=== PATIENT | male | born 1940 | race Caucasian/White ===

== ENCOUNTER → 2022-09-20 | Outpatient (CLI) | payer MEDICARE, BC ==
--- NOTE | 2022-09-20 08:56 | CT ---
EXAMINATION TYPE: CT hip RT wo con DATE OF EXAM: 09/20/2022 COMPARISON: None. HISTORY: right hip pain CT DLP: 914.2 mGycm Automated exposure control for dose reduction was used. FINDINGS: [place]ski osseous structures are demineralized. Metallic hardware from right hip arthroplasty is seen an d appears satisfactory in position. Streak artifact is present. No suspicious surrounding lucency not ed. There are old healed fracture deformities of the right superior and inferior pelvic rami. No acut e displaced fracture is seen. Muscle bulk is preserved. Catheter in bladder which is mildly to moderately distended. There are 4 to 5 mm dependent calculus a xial image 13. Scattered tiny pelvic phleboliths. [place] artifact limits evaluation of the prostate gl and. No groin hernia or adenopathy is seen. Surgical clips in the right groin region are noted. IMPRESSION: As above.
--- NOTE | 2022-09-20 15:25 | NM ---
EXAMINATION TYPE: NM bone 3 phase DATE OF EXAM: 09/20/2022 COMPARISON: NONE HISTORY: Right hip pain Triple phase bone scintigraphy was performed following the injection of 23.2 mCi Tc 99m MDP. Immedia te images and 5.25 hours post injection images acquired. FINDINGS: A photopenic defect suggests bilateral hip prostheses. A flow images demonstrate slight asy mmetric increased flow to the right hip. Blood pool images demonstrate symmetric soft tissue uptake. Delayed imaging demonstrates faint symmetric uptake surrounding both hip prostheses. This is felt to be most likely postsurgical. IMPRESSION: 1. There is slight asymmetric flow to the right hip prostheses. However, delayed images demonstrate o nly faint symmetric bilateral uptake with no diagnostic evidence of infection or loosening.
== END | disposition home or self-care (01) ==
LOC: RADCTMAIN 06:56
PROVIDERS: ATTEND Orthopaedic Surgery
DX: T84.84XD Pain due to internal orthopedic prosthetic devices, implants and grafts, subsequent encounter (principal); M25.551 Pain in right hip; R55 Syncope and collapse; N32.89 Other specified disorders of bladder; N21.0 Calculus in bladder; Z96.641 Presence of right artificial hip joint
CPT/HCPCS: 73700; 78315; A9503

== ENCOUNTER 2022-10-11 09:00 | Day surgery (SDC) | payer MEDICARE, BC ==
[2022-10-11 09:36] VITALS: RESP 16; TEMP 97.6
[2022-10-11 09:59] LABS: Glucose,Whole Blood 173 mg/dL (70-110)
[2022-10-11 10:37] VITALS: BP 130/75; PULSE 72
--- NOTE | 2022-10-11 18:03 | US ---
EXAMINATION TYPE: US guided asp/inj major joint DATE OF EXAM: 10/11/2022 Comparison: Correlation CT 09/20/2022 History: 82-year-old male M25.551,Z96.641,T84.84XD. Right hip replacement 20 years ago. Reports clunk ing and pain that started one year ago. Procedure: 1. Ultrasound of the right hip. 2. Ultrasound guided right hip aspiration. Technique: The procedure, risks, and alternatives, were discussed with the patient, who requested denise t we proceed. The consent form was signed, and teach-back occurred. The site/side of the procedure wa s marked with a line with participation by the patient. The accompanying paperwork was verified for c onsistency. A directed history and physical exam was performed prior to the procedure. Medication rec onciliation was performed by ancillary personnel. A critical pause was performed with assisting sarika alvarez just prior to the procedure and the patient's identity was confirmed using 2 identifiers. Imagin g guidance was utilized to select the precise skin entry point just prior to the procedure. The anterior right hip was prepped and draped in the usual sterile fashion and local 1% lidocaine ane sthesia was instilled. Under ultrasound guidance, the underlying prosthetic head neck junction was identified. No obvious as sociated effusion is identified. Under ultrasound guidance, an 18 gauge spinal needle was introduced into the prosthetic right hip joint down to the metal. Aspiration attempt yielded no fluid. Subsequen tly, a total of 9 mL sterile saline was injected and aspiration yielded a total of 3 mL blood-tinged clear fluid which is labeled and sent for laboratory analysis. The needle was then removed. The patient tolerated the procedure well. There were no immediate complications. After the procedure, the patient's condition was unchanged. Es timated blood loss was minimal. The patient was instructed on routine postprocedure precautions, incl uding monitoring for signs of infection. IMPRESSION: Successful ultrasound guided prosthetic right hip wash with sterile saline. Initial aspiration yielde d no fluid. Microbiology pending.
[2022-10-12 13:47] LABS: Appearance,BF Blood Tinged; Nucleated Cells, Body Fluid 245 /uL
[2022-10-12 13:48] LABS: RBC, Body Fluid 20000 /uL
== END 2022-10-11 10:55 | disposition home or self-care (01) ==
LOC: RADPROMAIN 09:00
PROVIDERS: ATTEND Orthopaedic Surgery
DX: M25.551 Pain in right hip (principal); Z96.641 Presence of right artificial hip joint; T84.84XD Pain due to internal orthopedic prosthetic devices, implants and grafts, subsequent encounter
CPT/HCPCS: 20611; 87070; 87075; 87102; 87205; 89050

== ENCOUNTER → 2023-04-05 | Outpatient (CLI) | payer MEDICARE, BC ==
[2023-04-05 15:46] LABS: INR 1.1 (<1.2); Partial Thromboplastin Time 28.9 sec (22.0-30.0); Prothrombin Time 11.7 sec (9.0-12.0)
[2023-04-05 19:57] LABS: BUN/Creat Ratio 20.59 Ratio (12.00-20.00); Blood Urea Nitrogen 55.6 mg/dL (9.0-27.0); Chloride 102 mmol/L (96-109); Glucose 210 mg/dL (70-110); Potassium 4.5 mmol/L (3.5-5.5); Sodium 137 mmol/L (135-145)
[2023-04-05 19:58] LABS: ALT 70 U/L (10-49); AST 61 U/L (14-35); Albumin 3.9 d/dL (3.8-4.9); Albumin/Globulin Ratio 1.56 Ratio (1.60-3.17); Alkaline Phosphatase 79 U/L (41-126); Calcium 9.9 mg/dL (8.7-10.3); Carbon Dioxide 23.8 mmol/L (21.6-31.8); Globulin 2.5 d/dL (1.6-3.3); Total Bilirubin 0.4 mg/dL (0.3-1.2); Total Protein 6.4 d/dL (6.2-8.2)
[2023-04-05 20:38] LABS: Appearance,Urine Clear (Clear); Bilirubin,Urine Negative (Negative); Blood,Urine Large (Negative); Color,Urine Yellow (Yellow); Ketones,Urine Negative (Negative); Nitrite,Urine Negative (Negative); PH, Urine 5.5; Specific Gravity,Urine 1.015 (1.001-1.030); Urobilinogen,Urine 0.2 E.U./DL
[2023-04-05 20:45] LABS: Bacteria,Urine None Seen (None Seen)
[2023-04-05 21:28] LABS: HGB 12.8 d/dL (12.0-15.0); MCH 33.1 pg (27.0-32.0); MCHC 32.8 d/dL (32.0-37.0); MCV 100.8 FL (80.0-97.0); Mean Platelet Volume 10.6 FL (9.5-12.2); NRBC Per 100 WBC 0 X 10*3/uL (0.00-0.01); Platelet Count 148 X 10*3/uL (140-440); RBC 3.87 X 10*6/uL (4.40-5.60); RDW 15.1 % (11.5-14.5); WBC 4.53 X 10*3/uL (4.50-10.00)
== END | disposition home or self-care (01) ==
LOC: LABPAT 13:56
PROVIDERS: ATTEND Orthopaedic Surgery
DX: Z01.812 Encounter for preprocedural laboratory examination (principal); M16.11 Unilateral primary osteoarthritis, right hip; E11.9 Type 2 diabetes mellitus without complications; Z96.641 Presence of right artificial hip joint
CPT/HCPCS: 80053; 81001; 83036; 85027; 85610; 85730; 87070; 93005

== ENCOUNTER 2023-04-13 05:53 | Inpatient (IN) | payer MEDICARE, BC ==
[2023-04-05 10:18] VITALS: BMI 26.6
[2023-04-13] MEDS ORDERED: ONDANSETRON 4 MG/2 ML VIAL IVP PRN ×2 (06:00→09:35)
[2023-04-13] MEDS ORDERED: FAMOTIDINE 20 MG/2 ML VIAL IVP PRN (06:00)
[2023-04-13] MEDS ORDERED: KETOROLAC 15 MG/ML 1 ML VIAL IVP PRN (06:00)
[2023-04-13] MEDS ORDERED: TRANEXAMIC 1,000 MG/100ML-NACL 1,000 MG in SALINE 1 100ML.BAG IVPB PRN (06:00)
[2023-04-13] MEDS ORDERED: ACETAMINOPHEN TAB 500 MG TAB PO PRN (06:00)
[2023-04-13] MEDS ORDERED: DEXAMETHASONE SOD PHOSPHATE 10 MG/ML 1 ML VIAL IV PRN (06:00)
[2023-04-13] MEDS ORDERED: oxyCODONE ER 10 MG TAB.ER.12H PO PRN (06:00)
[2023-04-13] MEDS ORDERED: TRANEXAMIC 1,000 MG/100ML-NACL 1,000 MG in SALINE 1 100ML.BAG IV PRN (06:00)
[2023-04-13] MEDS ORDERED: DOCUSATE 100 MG CAP PO PRN (06:00)
[2023-04-13] MEDS ORDERED: DEXAMETHASONE SOD PHOSPHATE 4 MG/ML 1 ML VIAL IV ONE (06:24)
[2023-04-13] MEDS ORDERED: ONDANSETRON 4 MG/2 ML VIAL IVP ONE (06:24)
[2023-04-13 06:43] LABS: Glucose,Whole Blood 122 mg/dL (70-110)
[2023-04-13] MEDS: LACTATED RINGERS 1,000 ML IV SCH ×2 (06:59→19:49)
[2023-04-13] MEDS ORDERED: MIDAZOLAM 2 MG/2 ML VIAL IVP ONE (07:13)
[2023-04-13] MEDS ORDERED: LIDOCAINE 2% INJ 20 MG/ML (2 ML VIAL) ONE (07:24)
[2023-04-13] MEDS ORDERED: NEOSTIGMINE 1 MG/ML 10 ML VIAL ONE (07:24)
[2023-04-13] MEDS ORDERED: ROCURONIUM 10 MG/ML (5 ML VIAL) IV ONE (07:24)
[2023-04-13] MEDS ORDERED: fentaNYL (PF) 50 MCG/ML 2 ML AMP ONE (07:24)
[2023-04-13] MEDS ORDERED: ETOMIDATE 2 MG/ML 10 ML VIAL ONE (07:24)
[2023-04-13] MEDS ORDERED: PHENYLEPHRINE-0.9% NACL SYG 1,000 MCG/10 ML SYRINGE ONE (07:24)
[2023-04-13] MEDS ORDERED: ePHEDrine 50 MG/ML 1 ML VIAL ONE (07:24)
[2023-04-13] MEDS ORDERED: ROPIVACAINE 5 MG/ML 30 ML VIAL ONE (07:24)
[2023-04-13] MEDS ORDERED: TRANEXAMIC 1,000 MG/100ML-NACL PREMIX BAG ONE (07:24)
[2023-04-13] MEDS ORDERED: GLYCOPYRROLATE 0.2 MG/ML 2 ML VIAL ONE (07:24)
[2023-04-13] MEDS ORDERED: SUCCINYLCHOLINE CHLORIDE 200 MG/10 ML VIAL IV ONE (07:24)
[2023-04-13] MEDS: ROPIVACAINE/EPI/CLONIDINE/KET 50 ML SYRINGE MISCELLANE PRN ×2 (08:08→08:59)
[2023-04-13] MEDS ORDERED: LACTATED RINGERS 1,000 ML IV ONE (09:12)
--- NOTE | 2023-04-13 09:27 | XR ---
EXAMINATION TYPE: XR Hip Limited RT DATE OF EXAM: 04/13/2023 COMPARISON: NONE HISTORY: Post op TECHNIQUE: One view submitted. FINDINGS: There is postsurgical change compatible hip replacement surgery. 16 FLUORO, .9888 Gycm2 IMPRESSION: 1. Postoperative change. Appears in near-anatomic alignment.
--- NOTE | 2023-04-13 09:31 | FL ---
EXAMINATION TYPE: FL guidance operating room DATE OF EXAM: 04/13/2023 HISTORY: Fluoroscopy time Total dose area product (DAP) in uGy*m?, mGy*cm? (or similar): 16 FLUORO, .9888 Gycm2 IMPRESSION: 1. Fluoroscopy time.
[2023-04-13] MEDS ORDERED: hydrOXYzine pamoate 25 MG CAP PO PRN (09:35)
[2023-04-13] MEDS ORDERED: NALOXONE 0.4 MG/ML 1 ML VIAL IV PRN (09:35)
[2023-04-13] MEDS ORDERED: HYDROcodone/APAP 5-325MG 1 EACH TAB PO PRN ×2 (09:35)
[2023-04-13] MEDS ORDERED: HYDROmorphone 0.5 MG/0.5 ML SYRINGE IVP PRN ×3 (09:35)
--- NOTE | 2023-04-13 09:44 | P.OP ---
Date of Procedure: 04/13/23 Preoperative Diagnosis: 1. Painful right total hip replacement with early generation ceramic on ceramic bearing surface 2. Coronary artery disease, history of CABG 3. Chronic kidney disease (creatinine 2.7) 4. DM2 5. Atrial fibrillation on Eliquis Postoperative Diagnosis: Same Procedure(s) Performed: Right revision total hip arthroplasty, head/liner exchange Implants: 1. Diana 48-mm G MDM liner 2. MDM 48-mm OD, 28-mm ID +5mm head Anesthesia: CYA, regional Surgeon: Hector Cloud Promotions Intern #1: Tirso Dodd Estimated Blood Loss (ml): 100 IV fluids (ml): 600 Pathology: other (Multiple deep fluid and tissue samples sent for culture) Condition: stable Disposition: PACU Indications for Procedure: The patient is a very pleasant 82-year-old male with multiple medical problems who is a medical history significant for coronary artery disease, chronic kidney disease, type 2 diabetes, and atrial fibrillation on anticoagulation who has had bilateral hip replacements remotely. Both were doing well until he recently developed mechanical pain and a popping sensation in the right hip. His x-rays showed an early degeneration ceramic on ceramic articulation. He was worked up for infection and his inflammatory markers were normal. A computed tomography scan was obtained to evaluate the position of the implants and the possibility of a ceramic liner fracture. He did not have any apparent failure of the ceramic articulation but continued to have a feeling of the hip coming out of socket and a painful popping sensation. I long discussion with the patient and consulted with several of my peers, reviewing the x-rays with them. My recommendation was to proceed with a headliner exchange as I felt his symptoms were most likely related to either ceramic failure or instability. The patient and his agreed with this. We briefly discussed a much larger revision but due to his multiple medical problems, age, and no definitive mechanical issues with the implants we all agreed to proceed with a headliner exchange. Custom potential risks and Locations of surgery at length. We also discussed the possibility of a more involved revision if the implants were loose were grossly malpositioned. The patient understands that he is at a high risk of complication due to his age and multiple medical problems. I had a long discussion with the patient in the office on the potential risks and complications of an elective total hip revision through a direct anterior approach. Risks discussed include, but are certainly not limited to, risks from anesthesia, superficial infection requiring local wound care or antibiotics, deep sage-prosthetic joint infection and the treatment required to eradicate infection, intraoperative fracture, postoperative periprosthetic fracture, damag e to local blood vessels or nerves particularly the lateral femoral cutaneous nerve, delayed wound healing requiring local wound care or possibly surgical debridement, hip dislocation, leg length discrepancy, soft tissue irritation around the total hip implant such as iliopsoas tendinitis or trochanteric bursitis, wear and osteolysis from the implants, squeaking or audible noises, groin pain, thigh pain, heterotopic ossification, stiffness, aseptic loosening of the implants, dissatisfaction with surgical outcome, need for revision surgery, DVT, PE, swelling of the operative extremity, acute coronary event, stroke, failure to thrive, and possibly loss of life or limb. The patient understands that while these are the most common complications after an elective hip replacement there are certainly other less common complications possible. They were given ample time to ask questions regarding the potential complications of a hip replacement. Following our discussion the patient provided their verbal and written consent to go forward with an elective total hip replacement revision. He is well aware of these risks and also that he has an increased risk of complication due to his medical issues. Operative Findings: The ceramic articulation was intact with no obvious fracture of either the liner or head. Both the socket and stem were well fixed with no evidence of loosening. The cup appeared to be slightly retroverted. There is no soft tissue impingement over the cup. There is no sign of deep infection. Description of Procedure: The patient was identified in the preoperative holding area and the correct hip was marked with my initials. I reviewed the procedure and consent with the patient. All of their questions were answered. The patient was then brought back into the operating room by anesthesia. While on the [facility] anesthesia was administered by the anesthesia team. Preoperative antibiotics and tranexamic ac id were also given. After the patient was under anesthesia I examined their ankles to determine their preoperative leg length discrepancy. The skin over the anterior aspect of the hip was shaved to remove hair over the site of planned incision. Both feet and ankles were padded with webril and boots for the [place] were applied. The patient was then carefully transferred onto the [place] table. A perineal post was immediately placed. The arms were placed on arm holders and were well-padded. Both boots were secured to the spars on the [place] table. The patient was positioned so that the pelvis was centered over the post. Nonsterile drapes were applied. A timeout was performed identifying the correct patient, operative extremity, and procedure. At this point fluoroscopy was brought in to take preoperative images of the pelvis and operative hip. Using the standing AP pelvis from the office as a template, a comparable image was obtained with fluoroscopy. A metallic bar was used to create a bi-ischial line for use as a reference to leg length adjustments during the procedure. Global offset was also measured on both the operative and nonoperative leg. Fluoroscopy was then brought out and a pre-scrub using a chlorhexidine scrub brush was performed. The operative limb was then prepped and draped in the standard sterile fashion. An anterior longitudinal incision was made lateral and distal to the ASIS. The skin and subcutaneous tissues were incised sharply. The underlying tensor fascia was identified and incised in its midportion. The fascia was dissected free from the underlying muscle and the muscle belly was retracted. A blunt tipped cobra retractor was placed over the superior neck under the muscle fibers of the gluteus minimus. The deep enveloping fascia of the tensor was incised. The anterior leash of vessels were then identified and cauterized. The fascia between the rectus and the capsule was then incised and the pre-capsular fat was excised. A second Cobra was placed inferior to the neck. The interval between the rectus and iliocapsularis and the hip capsule was developed and a retractor was placed carefully over the anterior rim of the acetabulum. A T-shaped anterior capsulotomy was performed. The superior capsular leaflet was left in place in the inferior capsular flap was excised. The Cobra retractors were placed intracapsularly. There is a small amount of clear fluid which was aspirated with a syringe and sent for cultures. Capsular tissue was also excised and sent for culture. There was no evidence of deep infection. The socket was then circumferentially exposed. Gentle traction was applied to the table and a bone tamp was used to disengage the femoral head from the trunnion. Using a bone hook the trunnion was carefully dislocated from the border of the femoral head. A pocket was made posterior to the cup and the trunnion and stem were placed behind the cup as traction was released to the table. The head was easily removed from the socket. There was no obvious fracture of either the head or liner. I then circumferentially exposed the socket. Using a T-handle extraction device the liner was removed and passed off to the back table. Tissue behind the cup was removed and sent for cultures. The socket was then thoroughly irrigated and inspected. Using a rongeur the cup was forcibly pulled there was no evidence of loosening. Cup appeared slightly retroverted with a small amount of overhang anteriorly. The iliopsoas did not appear to be impinging on the cup. The cup was then thoroughly irrigated and an MDM liner corresponding to the Size was gently tapped into place. Once the liner was engaged attention was turned to the stem. Using the table the leg was dropped and the trunnion was fully exposed. It appeared well fixed with no evidence of loosening. The trunnion appeared intact with no evidence of wear. A final MDM head including outer diameter poly-ball and an inner diameter ceramic head were dispensed. The MDM construct was assembled on the back table and gently tapped into place on the trunnion engaging the Torres taper. The hip was then carefully reduced. The acetabulum was irrigated and visualized to be free of debris. The hip was carefully reduced. Stability was checked clinically with external rotation to 90 and there was no evidence of instability. Final fluoroscopic images were taken. The wound was then thoroughly irrigated and soaked with a dilute Betadine rinse for 3 minutes. 3 L of sterile saline was irrigated through the wound using pulsatile lavage. Local anesthetic cocktail was injected into the soft tissues around the surgical field. A deep drain was placed. The wound was then closed in layers. A sterile dressing was placed over the surgical incision and drain site. The drapes were taken down and the patient was carefully transferred off of the [place] table. Following removal of the boots the leg lengths felt acceptable. The patient was then taken to recovery room having tolerated the procedure well. Tirso Dodd PA-C was required as a skilled medical support assistant for patient positioning, surgical exposure, retraction, placement of implants, and closure of the surgical wound. PLAN: The patient can weight-bear as tolerated on the operative extremity. 2 doses of postoperative antibiotics. DVT prophylaxis - resume Eliquis and aspirin. Due to this being a septic revision he will be placed on doxycycline 100 mg twice a day until his incisions healed. Physical therapy for gait training. Discontinue drain postoperative day #1 if output is less than 100 mL per shift.
[2023-04-13 09:50] LABS: Glucose,Whole Blood 133 mg/dL (70-110)
[2023-04-13 16:21] LABS: Glucose,Whole Blood 169 mg/dL (70-110)
[2023-04-13] MEDS ORDERED: DEXTROSE 50% SYRINGE 50 ML IVP PRN ×2 (17:50)
--- NOTE | 2023-04-13 17:51 | P.CONS ---
History of Present Illness - Reason for Consult Consult date: 04/13/23 Medical management Requesting physician: Hector Cloud - Chief Complaint Right hip surgery - History of Present Illness Pleasant 82-year-old patient who follows with Dr. Saskia Valdez. Her next able medical conditions include age progression, CAD, CHF, diabetes, GERD, hypertension, hyperlipidemia, renal disease, restless legs syndrome, CAD stage IV, back pain, kidney stents, pacemaker CAD with stent/bypass. Patient is undergoing revision right total hip arthroplasty with Dr. Cloud. Sitting up in bed. Eating dinner. No nausea vomiting. No chest pain no shortness of breath. Review of systems: GEN.: None EYES: None HEENT: None NECK: None RESPIRATORY: None CARDIOVASCULAR: None GASTROINTESTINAL: None GENITOURINARY: None MUSCULOSKELETAL: Joint pains LYMPHATICS: None HEMATOLOGICAL: None PSYCHIATRY: None NEUROLOGICAL: None Past medical history to include: Atrial fibrillation, CAD with bypass and stent, CHF, diabetes, GERD, hypertension, hyperlipidemia, osteoarthritis, restless legs syndrome, cardiomyopathy, CAD stage IV, pancreatitis, kidney stent in 2022, AICD/pacemaker, Joseph bypass in 2016, mitral valve repair, Social history: Used to work as a ken and also deviated appliances. . Alcohol occasionally. Physical examination: VITAL SIGNS: 97.4, 70, 18, 125/75, 93% room air GENERAL: BMI 26.9, declining with awake eating supper. EYES: Pupils equal. Conjunctiva normal. HEENT: External appearance of nose and ears normal, oral cavity grossly normal. NECK: JVD not raised; masses not palpable. HEART: First and second heart sounds are normal; no edema. LUNGS: Respiratory rate normal; clear to auscultation. ABDOMEN: Soft, nontender, liver spleen not palpable, no masses palpable. PSYCH: Alert and oriented x3; mood and affect normal. MUSCULOSKELETAL:No Clubbing/cyanosis;muscles-grossly intact. Dressing over the right hip incision site. OA. NEUROLOGICAL: Cranial nerves grossly intact; no facial asymmetry, power and sensation grossly intact. LYMPHATICS: No lymph nodes palpable in the axilla and neck INVESTIGATIONS, reviewed in the clinical context: 04/05/2023: White count 4.5 hemoglobin 12.8 platelets 148 potassium 4.5 BUN 55.6 creatinine 2.7 AST 61 ALT 70 Assessment and plan: -Revision right total hip arthroplasty Ancef for infection prophylaxis. Anticoagulation per Dr. Cloud. -Restless leg syndrome Requip 1.5 mg twice a day -Diabetes mellitus type 2 on oral hypoglycemic Glipizide. Follow Accu-Cheks for sliding scale. Giardia and some -Essential hypertension Amlodipine 5 mg a day -GERD Protonix 40 mg twice a day -CAD with a prior history of stent and bypass line Toprol XL 50 mg daily, Imdur 60 mg a day Lipitor -Chronic congestive heart failure EF not known Lasix 40 mg Sunday and Sunday -Hyperlipidemia Lipitor 40 mg daily at bedtime -Paroxysmal atrial fibrillation Eliquis, Toprol-XL, amiodarone -Primary osteoarthritis [place] 5 when necessary Care was discussed with the patient. Questions answered. Home medications and resume. Sliding scale with coverage. Thank you Dr. Cloud Past Medical History Past Medical History: Atrial Fibrillation, Coronary Artery Disease (CAD), Chest Pain / Angina, Heart Failure, Diabetes Mellitus, GERD/Reflux, Hyperlipidemia, Hypertension, Myocardial Infarction (CT), Osteoarthritis (OA), Renal Disease Additional Past Medical History / Comment(s): RLS, Cardiomyopathy, chronic kidney disease stage 4., hx pancreatitis from rx, back pain, kidney stent replac ed q 6 months (last was december 2022)., hx falls, pain right hip ., Pacemaker/AICD-(aviles ) Last Myocardial Infarction Date:: 2016? History of Any Multi-Drug Resistant Organisms: MRSA Year Discovered:: 2017 MDRO Source:: unknown Past Surgical History: AICD, Back Surgery, Coronary Bypass/CABG, Heart Catheterization With Stent, Joint Replacement, Pacemaker Additional Past Surgical History / Comment(s): CABG X2 (LAST MAY 2017). Mitral valve repair., TURP, bilateral hip replacement, kidney stent unsure what side. medtronic pacemaker (2017) and [employer]iles pacemaker/AICD (04/05/2020)., pt states total of 8 stents Past Anesthesia/Blood Transfusion Reactions: No Reported Reaction Date of Last Stent Placement:: unknown Type of Cardiac Device: Permanent Pacemaker, AICD Device Placement Date:: 04/05/2020 Past Psychological History: No Psychological Hx Reported Smoking Status: Former smoker Past Alcohol Use History: Occasional Additional Past Alcohol Use History / Comment(s): smoked 3 years as a teenager. drinks 3-5 drinks/week Past Drug Use History: None Reported - Past Family History Mother Family Medical History: Cancer Additional Family Medical History / Comment(s): bone Medications and Allergies Home Medications Medication Instructions Recorded Confirmed Type Acetaminophen [Tylenol Extra 1,000 mg PO BID 10/02/22 04/13/23 History Strength] Amiodarone [Cordarone] 200 mg PO QAM 10/02/22 04/13/23 History Apixaban [Eliquis] 5 mg PO BID 10/02/22 04/13/23 History Aspirin [Adult Low Dose Aspirin EC] 81 mg PO QAM 10/02/22 04/13/23 History Atorvastatin [Lipitor] 40 mg PO HS 10/02/22 04/13/23 History Cholecalciferol (Vitamin D3) 125 mcg PO DAILY 10/02/22 04/13/23 History [Vitamin D3 (125 MCG = 5,000 IU)] Empagliflozin [Jardiance] 25 mg PO DAILY 10/02/22 04/13/23 History Ferrous Sulfate [Feosol] 325 mg PO DAILY 10/02/22 04/13/23 History Furosemide [Lasix] 40 mg PO [place]OWES[place] 10/02/22 04/13/23 History Isosorbide Mononitrate ER [Imdur] 60 mg PO QAM 10/02/22 04/13/23 History Metoprolol Succinate [Toprol XL] 50 mg PO QAM 10/02/22 04/13/23 History Pantoprazole [Protonix] 40 mg PO BID 10/02/22 04/13/23 History Potassium Chloride [Klor-Con 10 ER] 10 meq PO M[place]ESA 10/02/22 04/13/23 History amLODIPine [Norvasc] 5 mg PO QAM 10/02/22 04/13/23 History glipiZIDE 20 mg PO DAILY 10/02/22 04/13/23 History rOPINIRole HCL [Requip] 1.5 mg PO BID 10/02/22 04/13/23 History Docusate [Colace] 100 mg PO BID #60 capsule 04/13/23 Rx Doxycycline Monohydrate 100 mg PO BID 14 Days #28 cap 04/13/23 Rx HYDROcodone/APAP 5-325MG [[place] 1 - 2 tab PO Q6HR PRN #30 tab 04/13/23 Rx 5-325] Omeprazole 40 mg PO DAILY 30 Days #30 cap 04/13/23 Rx Allergies Allergy/AdvReac Type Severity Reaction Status Date / Time ceftriaxone Allergy Unknown didnt work Verified 04/13/23 06:29 sulfamethoxazole Allergy Unknown didnt work Verified 04/13/23 06:29 [From Bactrim] trimethoprim [From Bactrim] Allergy Unknown didnt work Verified 04/13/23 06:29 dexamethasone [From Maxidex] Allergy pancreatiti Verified 04/13/23 06:29 s propoxyphene Allergy Rash/Hives Verified 04/13/23 06:29 [From Darvocet-N] ranitidine [From Zantac] Allergy Rash/Hives Verified 04/13/23 06:29 Physical Exam Vitals: Vital Signs Temp Pulse Pulse Pulse Resp BP BP 04/13/23 14:37 97.4 F L 70 18 125/75 04/13/23 13:00 69 16 97/59 04/13/23 12:30 69 16 105/70 04/13/23 12:00 69 16 110/68 04/13/23 11:30 69 16 108/65 04/13/23 11:00 69 16 105/73 04/13/23 10:45 69 16 117/73 04/13/23 10:30 69 16 116/68 04/13/23 10:15 69 16 121/73 04/13/23 10:00 67 16 123/74 04/13/23 09:45 69 16 107/66 04/13/23 09:30 96.9 F L 70 12 130/75 04/13/23 07:26 68 16 138/77 04/13/23 06:54 97.2 F L 69 16 156/78 Pulse Ox 04/13/23 14:37 93 L 04/13/23 13:00 98 04/13/23 12:30 95 04/13/23 12:00 94 L 04/13/23 11:30 94 L 04/13/23 11:00 94 L 04/13/23 10:45 94 L 04/13/23 10:30 94 L 04/13/23 10:15 96 04/13/23 10:00 100 04/13/23 09:45 100 04/13/23 09:30 98 04/13/23 07:26 97 04/13/23 06:54 97 Intake and Output 04/13/23 04/13/23 04/13/23 06:59 14:59 22:59 Intake Total 200 1250 Output Total 100 Balance 200 1150 Intake: IV 200 1250 Output: Estimated Blood Loss 100 Other: Weight 75.5 kg Results Labs: Abnormal Lab Results - Last 24 Hours (Table) 04/13/23 04/13/23 04/13/23 Range/Units 06:41 09:49 16:18 POC Glucose (mg/dL) 122 H 133 H 169 H (70-110) mg/dL
[2023-04-13] MEDS: INSULIN ASPART (NovoLOG) 100 UNIT/ML VIAL SQ SCH (19:08)
[2023-04-13 20:49] VITALS: RESP 16
[2023-04-13] MEDS ORDERED: ATORVASTATIN 40 MG TAB PO SCH (21:00)
[2023-04-13] MEDS ORDERED: SENNOSIDES-DOCUSATE SODIUM 1 EACH TAB PO SCH (21:00)
[2023-04-13 21:01] LABS: Glucose,Whole Blood 101 mg/dL (70-110)
[2023-04-13] MEDS: PANTOPRAZOLE 40 MG TABLET PO SCH (22:16)
[2023-04-13] MEDS: APIXABAN 5 MG TAB PO SCH (22:16)
[2023-04-14 05:56] LABS: Glucose,Whole Blood 130 mg/dL (70-110)
[2023-04-14] MEDS: INSULIN ASPART (NovoLOG) 100 UNIT/ML VIAL SQ SCH ×2 (06:30→12:07)
[2023-04-14] MEDS: PANTOPRAZOLE 40 MG TABLET PO SCH (06:31)
[2023-04-14] MEDS: LACTATED RINGERS 1,000 ML IV SCH ×2 (07:49→07:50)
--- NOTE | 2023-04-14 07:53 | P.PN ---
Subjective Progress Note Date: 04/14/23 Patient is doing well this morning. He has minor discomfort in his right hip but is otherwise doing well. He denies chest pain or shortness of breath. Objective - Vital Signs Vital signs: Vital Signs Temp 98.2 F 04/14/23 02:00 Pulse 72 04/14/23 02:00 Resp 16 04/14/23 02:00 BP 113/69 04/14/23 02:00 Pulse Ox 93 L 04/14/23 02:00 FiO2 Intake & Output 04/13/23 04/14/23 04/14/23 18:59 06:59 18:59 Intake Total 1250 Output Total 100 100 Balance 1150 -100 Weight 75.5 kg Intake: IV 1250 Output: Drainage 100 Right Hip 100 Estimated Blood Loss 100 Other: Voiding Method Toilet Urinal # Voids 2 - Exam The patient is resting comfortably in bed. He is alert and able to answer questions. A focused exam of the right lower extremity was conducted. On inspection there is a clean-appearing surgical dressing over the anterior aspect of his right hip. His drain site is intact and the Hemovac was pulled. His thigh is soft. Femoral nerve function is intact. Distally he is able to actively plantarflex and dorsiflex his ankle and his toes. - Labs Labs: Abnormal Lab Results - Last 24 Hours (Table) 04/13/23 04/13/23 04/14/23 Range/Units 09:49 16:18 05:54 POC Glucose (mg/dL) 133 H 169 H 130 H (70-110) mg/dL Microbiology - Last 24 Hours (Table) 04/13/23 08:13 Gram Stain - Preliminary Hip - Right 04/13/23 08:13 Gram Stain - Preliminary Aspirate Assessment and Plan Assessment: Postoperative day #1 status post right revision hip replacement, head liner exchange Plan: 1. Weight bearing as tolerated right lower extremity, up with assistance of a walker 2. Postoperative antibiotics 3. DVT prophylaxis - Resume Eliquis and Aspirin 4. Internal medicine for perioperative Medical management 5. Physical therapy for gait training 6. Dispo: The patient would like to discharge home today. If he passes physical therapy and his pain is controlled he can discharge home later today.
--- NOTE | 2023-04-14 07:55 | P.DS ---
Providers Date of admission: 04/13/23 05:53 Attending physician: Hector Cloud Consults: 04/13/23 09:35 Consult Physician Routine Consulting Provider: Brain Ny Consult Reason/Comments: medical management Do you want consulting provider notified?: Yes Primary care physician: Saskia Valdez Hospital Course: The patient is a very pleasant 82-year-old male with multiple medical problems who underwent an uncomplicated right revision hip replacement. He was admitted under my care. Internal medicine was consulted for medical management. The patient was seen on postoperative day #1 and his drain was pulled. He was doing well. He was ultimately cleared for discharge home. Plan - Discharge Summary Discharge Rx Participant: Yes New Discharge Prescriptions: New HYDROcodone/APAP 5-325MG [[place] 5-325] 1 - 2 tab PO Q6HR PRN #30 tab PRN Reason: Pain Doxycycline Monohydrate 100 mg PO BID 14 Days #28 cap Docusate [Colace] 100 mg PO BID #60 capsule Omeprazole 40 mg PO DAILY 30 Days #30 cap No Action rOPINIRole HCL [Requip] 1.5 mg PO BID Metoprolol Succinate [Toprol XL] 50 mg PO QAM Empagliflozin [Jardiance] 25 mg PO DAILY Atorvastatin [Lipitor] 40 mg PO HS Apixaban [Eliquis] 5 mg PO BID Pantoprazole [Protonix] 40 mg PO BID glipiZIDE 20 mg PO DAILY Potassium Chloride [Klor-Con 10 ER] 10 meq PO [place] Isosorbide Mononitrate ER [Imdur] 60 mg PO QAM Furosemide [Lasix] 40 mg PO M[place]ESA Ferrous Sulfate [Feosol] 325 mg PO DAILY Cholecalciferol (Vitamin D3) [Vitamin D3 (125 MCG = 5,000 IU)] 125 mcg PO DAILY amLODIPine [Norvasc] 5 mg PO QAM Aspirin [Adult Low Dose Aspirin EC] 81 mg PO QAM Amiodarone [Cordarone] 200 mg PO QAM Acetaminophen [Tylenol Extra Strength] 1,000 mg PO BID Discharge Medication List Acetaminophen [Tylenol Extra Strength] 1,000 mg PO BID 10/02/22 [History] Amiodarone [Cordarone] 200 mg PO QAM 10/02/22 [History] Apixaban [Eliquis] 5 mg PO BID 10/02/22 [History] Aspirin [Adult Low Dose Aspirin EC] 81 mg PO QAM 10/02/22 [History] Atorvastatin [Lipitor] 40 mg PO HS 10/02/22 [History] Cholecalciferol (Vitamin D3) [Vitamin D3 (125 MCG = 5,000 IU)] 125 mcg PO DAILY 10/02/22 [History] Empagliflozin [Jardiance] 25 mg PO DAILY 10/02/22 [History] Ferrous Sulfate [Feosol] 325 mg PO DAILY 10/02/22 [History] Furosemide [Lasix] 40 mg PO [place] 10/02/22 [History] Isosorbide Mononitrate ER [Imdur] 60 mg PO QAM 10/02/22 [History] Metoprolol Succinate [Toprol XL] 50 mg PO QAM 10/02/22 [History] Pantoprazole [Protonix] 40 mg PO BID 10/02/22 [History] Potassium Chloride [Klor-Con 10 ER] 10 meq PO [place] 10/02/22 [History] amLODIPine [Norvasc] 5 mg PO QAM 10/02/22 [History] glipiZIDE 20 mg PO DAILY 10/02/22 [History] rOPINIRole HCL [Requip] 1.5 mg PO BID 10/02/22 [History] Docusate [Colace] 100 mg PO BID #60 capsule 04/13/23 [Rx] Doxycycline Monohydrate 100 mg PO BID 14 Days #28 cap 04/13/23 [Rx] HYDROcodone/APAP 5-325MG [[place] 5-325] 1 - 2 tab PO Q6HR PRN #30 tab 04/13/23 [Rx] Omeprazole 40 mg PO DAILY 30 Days #30 cap 04/13/23 [Rx] Follow up Appointment(s)/Referral(s): [facility] [NON-STAFF] - 1-2 Days Hector Cloud MD [Medical Doctor] - 2 Weeks Activity/Diet/Wound Care/Special Instructions: Weight bear to tolerance on operative extremity with a walker. Keep operative dressing in place until follow-up in the office. Call the office if dressing becomes saturated or falls off. May shower over dressing. Take pain medication and antibiotics as prescribed. Resume Eliquis and Aspirin for blood clot prevention. Follow-up in the office at [facility] in two weeks. Call the office with any questions or concerns, Discharge Disposition: HOME WITH HOME HEALTH SERVICES
[2023-04-14] MEDS: APIXABAN 5 MG TAB PO SCH (08:08)
[2023-04-14 08:47] VITALS: BP 128/79; PULSE 70; TEMP 98.1
[2023-04-14] MEDS ORDERED: glipiZIDE 10 MG TAB PO SCH (09:00)
[2023-04-14] MEDS ORDERED: FUROSEMIDE 40 MG TAB PO SCH (09:00)
[2023-04-14] MEDS ORDERED: amLODIPine 5 MG TAB PO SCH (09:00)
[2023-04-14] MEDS ORDERED: ASPIRIN 81 MG PO SCH (09:00)
[2023-04-14] MEDS ORDERED: ISOSORBIDE MONONITRATE ER 60 MG TAB.ER.24H PO SCH (09:00)
[2023-04-14] MEDS ORDERED: METOPROLOL SUCCINATE (ER) 50 MG TAB.ER.24H PO SCH (09:00)
[2023-04-14] MEDS ORDERED: FERROUS SULFATE 325 MG TAB PO SCH (09:00)
[2023-04-14] MEDS ORDERED: AMIODARONE 200 MG TAB PO SCH (09:00)
[2023-04-14] MEDS ORDERED: CHOLECALCIFEROL 125 MCG (5000 IU) TABLET PO SCH (09:00)
[2023-04-14] MEDS ORDERED: DAPAGLIFLOZIN PROPANEDIOL 10 MG TABLET PO SCH (09:00)
[2023-04-14] MEDS ORDERED: POTASSIUM CHLORIDE ER 10 MEQ TAB.ER.PRT PO SCH (09:00)
[2023-04-14 12:00] LABS: Glucose,Whole Blood 98 mg/dL (70-110)
[2023-04-14 12:55] LABS: Basophils % (A) 1 %; Eosinophils # (A) 0.1 k/uL (0-0.7); Eosinophils % (A) 3 %; HCT 37.2 % (39.0-53.0); HGB 11.2 gm/dL (13.0-17.5); Lymphocytes # (A) 0.5 k/uL (1.0-4.8); Lymphocytes % (A) 9 %; MCH 30.9 pg (25.0-35.0); MCHC 30.2 g/dL (31.0-37.0); MCV 102.2 fL (80.0-100.0); Macrocytosis Slight; Mean Platelet Volume 8.8; Monocytes # (A) 0.3 k/uL (0-1.0); Monocytes % (A) 7 %; Neutrophils # (A) 4.1 k/uL (1.3-7.7); Neutrophils % (A) 80 %; Platelet Count 107 k/uL (150-450); RBC 3.64 m/uL (4.30-5.90); RDW 14.4 % (11.5-15.5); WBC 5.1 k/uL (3.8-10.6)
--- NOTE | 2023-04-14 13:42 | P.PN ---
Progress Note - Text Progress Note Date: 04/14/23 - Chief Complaint Right hip surgery - History of Present Illness Pleasant 82-year-old patient who follows with Dr. Saskia Valdez. Her next able medical conditions include age progression, CAD, CHF, diabetes, GERD, hypertension, hyperlipidemia, renal disease, restless legs syndrome, CAD stage IV, back pain, kidney stents, pacemaker CAD with stent/bypass. Patient is undergoing revision right total hip arthroplasty with Dr. Cloud. Sitting up in bed. Eating dinner. No nausea vomiting. No chest pain no shortness of breath. April 14: Doing better. Pain control. Slight dizziness on getting up. Discussed with the patient. Eating fine. Did work with therapy. Patient does intermittent catheterization at home. This morning urinary retention. Straight catheterization. Follow-up with PCP upon discharge. Discussed with patient and . Hold Norvasc for now. Resume at home with systolic blood pressure above 140. Discussed with patient and Active Medications Hydrocodone Bitart/Acetaminophen (Hydrocodone/Apap 5-325mg 1 Each Tab) 1 each PO Q6HR PRN PRN Reason: Pain Scale 1 to 5 Hydrocodone Bitart/Acetaminophen (Hydrocodone/Apap 5-325mg 1 Each Tab) 2 each PO Q6HR PRN PRN Reason: Pain Scale 6 to 10 Last Admin: 04/13/23 17:17 Dose: 2 each Amiodarone HCl (Amiodarone 200 Mg Tab) 200 mg PO QAM [facility] Last Admin: 04/14/23 08:09 Dose: 200 mg Apixaban (Apixaban 5 Mg Tab) 5 mg PO BID [facility]; Protocol Last Admin: 04/14/23 08:08 Dose: 5 mg Aspirin (Aspirin 81 Mg) 81 mg PO QAM [facility] Last Admin: 04/14/23 08:08 Dose: 81 mg Atorvastatin Calcium (Atorvastatin 40 Mg Tab) 40 mg PO HS [facility] Last Admin: 04/13/23 22:16 Dose: 40 mg Cholecalciferol (Cholecalciferol 125 Mcg (5000 Iu) Tablet) 125 mcg PO DAILY [facility] Last Admin: 04/14/23 08:08 Dose: 125 mcg Dapagliflozin (Dapagliflozin Propanediol 10 Mg Tablet) 10 mg PO DAILY [facility] Last Admin: 04/14/23 08:09 Dose: 10 mg Dextrose/Water (Dextrose 50% Syringe 50 Ml) 25 ml IVP PER PROTOCOL PRN; Protocol PRN Reason: Hypoglycemia Dextrose/Water (Dextrose 50% Syringe 50 Ml) 50 ml IVP PER PROTOCOL PRN; Protocol PRN Reason: Hypoglycemia Ferrous Sulfate (Ferrous Sulfate 325 Mg Tab) 325 mg PO DAILY [facility] Last Admin: 04/14/23 08:09 Dose: 325 mg Furosemide (Furosemide 40 Mg Tab) 40 mg PO [id number]@0900 [facility] Last Admin: 04/14/23 08:09 Dose: 40 mg Glipizide (Glipizide 10 Mg Tab) 20 mg PO DAILY [facility] Last Admin: 04/14/23 08:08 Dose: 20 mg Hydromorphone HCl (Hydromorphone 0.5 Mg/0.5 Ml Syringe) 0.125 mg IVP Q3HR PRN PRN Reason: Pain Scale 1 to 3 Hydromorphone HCl (Hydromorphone 0.5 Mg/0.5 Ml Syringe) 0.5 mg IVP Q3HR PRN PRN Reason: Pain Scale 7 to 10 Hydromorphone HCl (Hydromorphone 0.5 Mg/0.5 Ml Syringe) 0.25 mg IVP Q3HR PRN PRN Reason: Pain Scale 4 to 6 Hydroxyzine Pamoate (Hydroxyzine Pamoate 25 Mg Cap) 25 mg PO Q4HR PRN PRN Reason: Nausea, Anxiety, Pain Control Lactated Ringer's (Lactated Ringers) 1,000 mls @ 20 mls/hr IV .Q24H [facility] Last Admin: 04/14/23 07:49 Dose: Not Given Lactated Ringer's (Lactated Ringers) 1,000 mls @ 50 mls/hr IV .Q20H [facility] Last Admin: 04/14/23 07:50 Dose: Not Given Insulin Aspart (Insulin Aspart (Novolog) 100 Unit/Ml Vial) 0 unit SQ AC-TID [facility]; Protocol Last Admin: 04/14/23 12:07 Dose: Not Given Isosorbide Mononitrate (Isosorbide Mononitrate Er 60 Mg Tab.Er.24h) 60 mg PO [facility] Last Admin: 04/14/23 08:09 Dose: 60 mg Metoprolol Succinate (Metoprolol Succinate (Er) 50 Mg Tab.Er.24h) [facility] Admin: 04/14/23 08:08 Dose: 50 mg Naloxone HCl (Naloxone 0.4 Mg/Ml 1 Ml Vial) 0.2 mg IV Q2M PRN PRN Reason: Opioid Reversal Ondansetron HCl (Ondansetron 4 Mg/2 Ml Vial) 4 mg IVP DAILY PRN PRN Reason: Nausea And Vomiting Pantoprazole Sodium (Pantoprazole 40 Mg Tablet) 40 mg PO AC-BID [facility] Last Admin: 04/14/23 06:31 Dose: 40 mg Potassium Chloride (Potassium Chloride Er 10 Meq Tab.Er.Prt) 10 meq PO [id number]@0900 [facility] Last Admin: 04/14/23 08:08 Dose: 10 meq Ropinirole HCl (Ropinirole Hcl 1 Mg Tab) 1.5 mg PO BID [facility] Last Admin: 04/14/23 08:08 Dose: 1.5 mg Senna/Docusate Sodium (Sennosides-Docusate Sodium 1 Each Tab) 2 each PO HS [facility] Last Admin: 04/13/23 22:16 Dose: 2 each Past medical history to include: Atrial fibrillation, CAD with bypass and stent, CHF, diabetes, GERD, hypertension, hyperlipidemia, osteoarthritis, restless legs syndrome, cardiomyopathy, CAD stage IV, pancreatitis, kidney stent in 2022, AICD/pac emaker, Joseph bypass in 2016, mitral valve repair, Social history: Used to work as a ken and also deviated appliances. . Alcohol occasionally. Physical examination: VITAL SIGNS: 98.1, 70, 16, 128/79, 91% room air GENERAL: BMI 26.9, reclining comfortable EYES: Pupils equal. Conjunctiva normal. HEENT: External appearance of nose and ears normal, oral cavity grossly normal. NECK: JVD not raised; masses not palpable. HEART: First and second heart sounds are normal; no edema. LUNGS: Respiratory rate normal; clear to auscultation. ABDOMEN: Soft, nontender, liver spleen not palpable, no masses palpable. PSYCH: Alert and oriented x3; mood and affect normal. MUSCULOSKELETAL:No Clubbing/cyanosis;muscles-grossly intact. Dressing over the right hip incision site. OA. INVESTIGATIONS, reviewed in the clinical context: April 14: White count 5.1 hemoglobin 11.2 platelets 107 04/05/2023: White count 4.5 hemoglobin 12.8 platelets 148 potassium 4.5 BUN 55.6 creatinine 2.7 AST 61 ALT 70 Assessment and plan: -Revision right total hip arthroplasty Ancef for infection prophylaxis. Anticoagulation per Dr. Cloud. -Restless leg syndrome Requip 1.5 mg twice a day -Diabetes mellitus type 2 on oral hypoglycemic Glipizide. Follow Accu-Cheks for sliding scale. Giardia and some -Acute postprocedure blood loss anemia expected from surgery Ferrous sulfate -Essential hypertension Amlodipine 5 mg a day -GERD Protonix 40 mg twice a day -CAD with a prior history of stent and bypass line Toprol XL 50 mg daily, Imdur 60 mg a day Lipitor -Chronic congestive heart failure EF not known Lasix 40 mg Sunday and Sunday -Hyperlipidemia Lipitor 40 mg daily at bedtime -Paroxysmal atrial fibrillation Eliquis, Toprol-XL, amiodarone -Primary osteoarthritis [place] 5 when necessary Discussed with patient and . Hold amlodipine until systolic blood pressure above 140. Ferrous sulfate. Blood pressure check. CBC in [address] Cloud
--- NOTE | 2023-04-14 19:58 | P.ANPRN ---
Procedure Note - Anesthesia - Nerve Block Performed Right [place]ane Single Time Out Performed: Yes Date of Procedure: 04/13/23 Procedure Start Time: 07:12 Procedure Stop Time: 07:18 Location of Patient: PreOp Indication: Acute Post-Operative Pain, Requested by Surgeon Sedation Type: Sedate with meaningful contact maintained Preparation: Sterile Prep Position: Supine Needle Types: [place]unk Needle Gauge: 21 Ultrasound used to visualize needle placement: Yes Ultrasound used to observe medication spread: Yes Blood Aspirated: No Pain Paresthesia on Injection Noted: No Resistance on Injection: Normal Image Stored and Saved: Yes Events: Uneventful and Well Tolerated (Ropivacaine 0.5% 25 mL)
== END 2023-04-14 14:12 | disposition home health service (06) | DRG 467 ==
LOC: 2ORMAIN 05:53 → EDSTATUS 07:30 → 4SSUR 12:47
PROVIDERS: ADMIT Orthopaedic Surgery; ATTEND Orthopaedic Surgery
PROC: 0SP90JZ Removal of Synthetic Substitute from Right Hip Joint, Open Approach (ICD-10-PCS; 2023-04-13)
PROC: 0SR90JA Replacement of Right Hip Joint with Synthetic Substitute, Uncemented, Open Approach (ICD-10-PCS; principal; 2023-04-13 07:30)
PROC: 3E0T3BZ Introduction of Anesthetic Agent into Peripheral Nerves and Plexi, Percutaneous Approach (ICD-10-PCS; 2023-04-14)
DX: T84.060A Wear of articular bearing surface of internal prosthetic right hip joint, initial encounter (principal); D62 Acute posthemorrhagic anemia; I13.0 Hypertensive heart and chronic kidney disease with heart failure and stage 1 through stage 4 chronic kidney disease, or unspecified chronic kidney disease; N18.4 Chronic kidney disease, stage 4 (severe); I42.9 Cardiomyopathy, unspecified; E11.22 Type 2 diabetes mellitus with diabetic chronic kidney disease; I50.9 Heart failure, unspecified; I48.0 Paroxysmal atrial fibrillation; G25.81 Restless legs syndrome; E78.5 Hyperlipidemia, unspecified; I25.10 Atherosclerotic heart disease of native coronary artery without angina pectoris; K21.9 Gastro-esophageal reflux disease without esophagitis; R33.9 Retention of urine, unspecified; M19.91 Primary osteoarthritis, unspecified site; Y79.2 Prosthetic and other implants, materials and accessory orthopedic devices associated with adverse incidents; Z96.642 Presence of left artificial hip joint; Z91.81 History of falling; Z95.1 Presence of aortocoronary bypass graft; Z79.01 Long term (current) use of anticoagulants; Z87.891 Personal history of nicotine dependence; Z95.0 Presence of cardiac pacemaker; Z95.5 Presence of coronary angioplasty implant and graft; Z79.899 Other long term (current) drug therapy; Z79.82 Long term (current) use of aspirin; Z79.84 Long term (current) use of oral hypoglycemic drugs; Z79.1 Long term (current) use of non-steroidal anti-inflammatories (NSAID); I25.2 Old myocardial infarction; Z88.1 Allergy status to other antibiotic agents; Z88.6 Allergy status to analgesic agent; Z88.8 Allergy status to other drugs, medicaments and biological substances; Z88.5 Allergy status to narcotic agent; Z87.448 Personal history of other diseases of urinary system; Z87.19 Personal history of other diseases of the digestive system; Z86.14 Personal history of Methicillin resistant Staphylococcus aureus infection
CPT/HCPCS: 73501; 85025; 86850; 86900; 86901; 87070; 87075; 87205